=== PATIENT | male | born 1940 | race Caucasian/White ===

== ENCOUNTER → 2017-02-27 | Day surgery (SDC) | payer OTHER, MEDICARE ==
[2017-02-26 08:40] VITALS: BMI 23.0
[~2017-02-27] VITALS: Ht 180.3 cm; Wt 75.0 kg
[~2017-02-27] MED LIST: COEN100C11 PO; HYDC25 PO; LIDOCAINE HCL 2% 2 ML VIAL (20MG/ML) ONE; LISI40TA PO; MIDAZOLAM HCL 1 MG/ML 2ML VIAL ONE; ONDANSETRON INJ 2 MG/ML 2 ML VIAL ONE; PANT40TA PO; PROPOFOL IV EMULSION 10 MG/ML 20 ML VIAL IV ONE; SIMV10TA2 PO; ZNTT/150 PO
[2017-02-27 10:52] VITALS: Ht 180.3 cm; Wt 75.0 kg
--- NOTE | 2017-02-27 12:33 | Endo History and Physical ---
History & Physical Date of Service: February 27, 2017. Chief Complaint: ACID REFLUX Referring Physician: DR GARCIA History of Present Illness 76 yo CM who presents for EGD with Link pH monitor secondary to GERD Past Medical History Male Genitourinary Prob., Reflux, Cancer, High Cholesterol, Hypertension Past Surgical History Hx Cardiac Surgery: No Hx Internal Defibrillator: No Hx Pacemaker: No Hx Abdominal Surgery: No Hx of Implantable Prosthesis: No Hx Post-Op Nausea and Vomiting: No Hx Cancer Surgery: No Hx Thoracic Surgery: No Hx Orthopedic: Yes (RT/LEFT CTR) Hx Urinary Tract Surgery: Yes (TURP) Family History None Social History Smoking Status: Never Smoker Hx Substance Use: No Hx Alcohol Use: Yes (RARELY) Allergies Coded Allergies: No Known Allergies (Verified , 02/27/17) Current Medications Reported Home Medications Medications Dose Route/Sig Max Daily Dose Days Date Category Coq-10 (Coenzyme Q10 (Ubidecarenone)) 100 Mg Cap 1 Tab PO QAM 11/18/15 Reported Protonix (Pantoprazole Sodium) 40 Mg Tab 40 Mg PO BID 11/18/15 Reported Zantac (Ranitidine HCl) 150 Mg Tab 150 Mg PO DAILY PRN 11/18/15 Reported Zocor (Simvastatin) 10 Mg Tab 10 Mg PO QPM 02/02/11 Reported Hctz * (Hydrochlorothiazide) 12.5 Mg Cap 25 Mg PO QAM 02/02/11 Reported Prinivil (Lisinopril) 40 Mg Tab 40 Mg PO QAM 02/02/11 Reported Vital Signs Weight (Kilograms): 75.00 Height (Feet): 5 Height (Inches): 11 Date Time Temp Pulse Resp B/P Pulse Ox O2 Delivery O2 Flow Rate FiO2 02/27/17 10:57 37 70 18 119/63 96 Room Air Physical Exam General Appearance: WD/WN, no apparent distress Respiratory/Chest: Auscultation: breath sounds normal Cardiovascular: Heart Auscultation: RRR Abdomen: Bowel Sounds: normal Inspection & Palpation: soft, non-distended, no tenderness, guarding & rebound Assessment and Plan Assessment: 76 yo CM who presents for EGD with Link pH monitor secondary to GERD Plan: Proceed with EGD.
--- NOTE | 2017-02-27 12:44 | Discharge Instructions ---
Endoscopy Patient Instructions Date / Procedure(s) Performed February 27, 2017. EGD Allergy Information Coded Allergies: No Known Allergies (Verified , 02/27/17) Discharge Date / Findings February 27, 2017. Gastritis s/p biopsies Link pH monitor placement Medication Instructions OK to resume all medications today as prescribed Reported Home Medications Medications Dose Route/Sig Max Daily Dose Days Date Category Coq-10 (Coenzyme Q10 (Ubidecarenone)) 100 Mg Cap 1 Tab PO QAM 11/18/15 Reported Protonix (Pantoprazole Sodium) 40 Mg Tab 40 Mg PO BID 11/18/15 Reported Zantac (Ranitidine HCl) 150 Mg Tab 150 Mg PO DAILY PRN 11/18/15 Reported Zocor (Simvastatin) 10 Mg Tab 10 Mg PO QPM 02/02/11 Reported Hctz * (Hydrochlorothiazide) 12.5 Mg Cap 25 Mg PO QAM 02/02/11 Reported Prinivil (Lisinopril) 40 Mg Tab 40 Mg PO QAM 02/02/11 Reported Provider Instructions Activity Restrictions - No exercising or heavy lifting for 24 hours. - Do not drink alcohol the day of the procedure. - Do not drive a car or operate machinery until the day after the procedure. - Do not make any important decisions or sign important papers in 24 hours after the procedure. Following Day: - Return to full activity which may include returning to work/school. Diet Start your diet with liquids and light foods (jello, soup, juice, toast). Then eat your usual diet if not nauseated. Treatment For Common After Affects For mild abdominal pain, bloating, or excessive gas: - Rest - Eat lightly - Lie on right side Follow-Up Information Follow-up with DR GARCIA as scheduled Anesthesia Information What You Should Know You have had a procedure that required some medicine to reduce anxiety and discomfort. This treatment is called moderate sedation. After receiving the treatment, you may be sleepy, but you will be able to breathe on your own. The effects of the treatment may last for several hours. Follow these instructions along with Activity/Diet recommendations noted above: * Do NOT do anything where dizziness or clumsiness would be dangerous. * Rest quietly at home today, then you can be up and about tomorrow. * Have a responsible person stay with you the rest of today. * You may have had an I.V. today. If so, you may take the dressing off later today. Recommendations Call your doctor if: * Trouble breathing * Continuous vomiting for more than 24 hours * Temperature above 101 degrees * Severe abdominal pain or bloating * Pain not relieved by pain medicine ordered * There is increased drainage or redness from any incision * A large amount of rectal bleeding greater than 2-3 tablespoons. (If you had a polyp/s removed or have hemorrhoids, a small amount of blood - from the rectum is to be expected.) * You have any unanswered questions or concerns. IN THE EVENT OF A SERIOUS EMERGENCY, GO TO THE NEAREST EMERGENCY ROOM Your discharge instructions were prepared by provider Tommy Bingham. Patient Instructions Signature Page Julián Perez Patient (or Guardian) Signature/Date: I have read and understand the instructions given to me by my caregivers. Caregiver/RN/Doctor Signature/Date: The above-named patient and/or guardian has received patient instructions on this date. + Original Patient Signature Page (only) stays with chart. Please make copy for patient.
--- NOTE | 2017-02-27 12:48 | GI REPORT ---
Procedure Date: 02/27/2017 12:24 PM Procedure: Upper GI endoscopy Indications: Suspected gastro-esophageal reflux disease Medicines: Monitored Anesthesia Care Complications: No immediate complications. Estimated Blood Loss: Estimated blood loss: none. Procedure: Pre-Anesthesia Assessment: - Prior to the procedure, a History and Physical was performed, and patient medications and allergies were reviewed. The patient's tolerance of previous anesthesia was also reviewed. The risks and benefits of the procedure and the sedation options and risks were discussed with the patient. All questions were answered, and informed consent was obtained. Prior Anticoagulants: The patient has taken no previous anticoagulant or antiplatelet agents. ASA Grade Assessment: III - A patient with severe systemic disease. After reviewing the risks and benefits, the patient was deemed in satisfactory condition to undergo the procedure. After obtaining informed consent, the endoscope was passed under direct vision. Throughout the procedure, the patient's blood pressure, pulse, and oxygen saturations were monitored continuously. The scope was introduced through the mouth, and advanced to the second part of duodenum. The upper GI endoscopy was accomplished without difficulty. The patient tolerated the procedure well. Findings: The CROOKS capsule with delivery system was introduced through the mouth and advanced into the esophagus, such that the CROOKS pH capsule was positioned 38 cm from the incisors, which was 6 cm proximal to the EG junction. The CROOKS pH capsule was then deployed and attached to the esophageal mucosa. The delivery system was then withdrawn. Endoscopy was utilized for probe placement and diagnostic evaluation. The examined esophagus was normal. Localized mild inflammation characterized by erythema was found in the gastric antrum. Biopsies were taken with a cold forceps for histology. The examined duodenum was normal. Impression: - Normal esophagus. - Gastritis. Biopsied. - Normal examined duodenum. - The CROOKS pH capsule was deployed. Recommendation: - Resume previous diet. - Continue present medications. - Await pathology results. - Return to GI office as previously scheduled. Tommy Bingham DO 02/27/2017 12:48:05 PM This report has been signed electronically. Note Initiated On: 02/27/2017 12:24 PM I attest to the content of the Intraoperative Record and orders documented therein, exceptions below
--- NOTE | 2017-02-27 13:02 | Anesthesiology Progress Note ---
Anesthesia Post Op Note Date & Time February 27, 2017 at 13:01 Vital Signs Pain Intensity: 0 Vital Signs Past 12 Hours Date Time Temp Pulse Resp B/P Pulse Ox O2 Delivery O2 Flow Rate FiO2 02/27/17 12:50 67 18 92/46 96 Room Air 02/27/17 10:57 37 70 18 119/63 96 Room Air Notes Mental Status: alert / awake / arousable, participated in evaluation Pt Amnestic to Procedure: Yes Nausea / Vomiting: adequately controlled Pain: adequately controlled Airway Patency, RR, SpO2: stable & adequate BP & HR: stable & adequate Hydration State: stable & adequate Anesthetic Complications: no major complications apparent
[2017-02-27 13:20] VITALS: BP 126/67; PULSE 67; O2SAT 96
--- NOTE | 2017-03-01 15:36 | GASTROINTESTINAL CONSULTATION ---
DATE OF CONSULTATION: 03/01/2017 CROOKS pH REPORT The Crooks pH study was performed with the patient on his medications and the data acquisition was sufficient for analysis. The acid exposure based on time the pH was less than 4 was 0.5% total. On day 1 it was 0.7% and on day 2 it was 0.3%. The DeMeester score on day 1 was 3.7 and on day 2 was 1.2 with total DeMeester score of 2.7. A total of 3 symptoms were reported and 0 of these symptoms were associated with reflux, symptoms associated probability score was 0% for each symptom which included chest pain, regurgitation and heartburn. These data are consistent with normal acid exposure and negative correlation between symptoms and reflux. Would recommend that the patient follow up with his primary care doctor and maintain his current antireflux regimen. Once again, thanks for allowing me to participate in the care of this patient. If you have any further questions, please do not hesitate in contacting me.
== END | disposition home or self-care (01) ==
LOC: C.GI 10:33
PROVIDERS: ATTEND Internal Medicine
DX: K21.9 Gastro-esophageal reflux disease without esophagitis (principal); K29.70 Gastritis, unspecified, without bleeding; I10 Essential (primary) hypertension; E78.00 Pure hypercholesterolemia, unspecified; Z85.72 Personal history of non-Hodgkin lymphomas

== ENCOUNTER → 2017-04-24 | Outpatient (CLI) | payer OTHER, MEDICARE ==
[~2017-04-24] MED LIST changes: -LIDOCAINE HCL 2% 2 ML VIAL (20MG/ML) ONE; -MIDAZOLAM HCL 1 MG/ML 2ML VIAL ONE; -ONDANSETRON INJ 2 MG/ML 2 ML VIAL ONE; -PROPOFOL IV EMULSION 10 MG/ML 20 ML VIAL IV ONE
--- NOTE | 2017-04-24 12:49 | DIAGNOSTIC IMAGING REPORT ---
NUCLEAR GASTRIC EMPTYING STUDY HISTORY: Dyspepsia R12 Heartburn COMPARISON: None. TECHNIQUE: Following the oral administration of 1.0 mCi of technetium 99m sulfur colloid in egg sandwich and 8 ounces of water, static abdominal images are obtained anteriorly and posteriorly at 0 minutes, 1 hour, 2 hour, and 4 hour time intervals. Gastric emptying was calculated utilizing the geometric mean method. FINDINGS: There is approximately 74 % activity remaining at the 1 hour time interval (normal is less than 90%), 48 % remaining at the 2 hour time interval (normal is less than 60%), and 5 % activity remaining at the 4 hour time interval (normal is less than 10%). IMPRESSION: No evidence for delayed gastric emptying. Electronically signed by: hCad Wagner M.D. 04/24/2017 12:48 PM Dictated Date/Time: 04/24/2017 12:43 PM
== END | disposition home or self-care (01) ==
LOC: C.NUCL 08:11
PROVIDERS: ATTEND Physician Assistant
DX: R12 Heartburn (principal)